=== PATIENT | female | born 1995 | race African-American/Black ===

== ENCOUNTER 2016-11-27 16:03 | Emergency (ER) | payer OTHER ==
[2016-11-27] MEDS ORDERED: ACETAMINOPHEN 325 MG TABLET PO STA (16:38)
[2016-11-27] MEDS ORDERED: ACETAMINOPHEN 325 MG TABLET PO ONE (16:42)
== END 2016-11-27 16:57 | disposition home or self-care (01) ==
DX: O9A.212 Injury, poisoning and certain other consequences of external causes complicating pregnancy, second trimester (principal); S93.491A Sprain of other ligament of right ankle, initial encounter; X50.1XXA Overexertion from prolonged static or awkward postures, initial encounter; Z3A.24 24 weeks gestation of pregnancy
CPT/HCPCS: 99282; 99283; A9270